=== PATIENT | female | born 1990 | race Caucasian/White ===

== ENCOUNTER → 2017-05-22 | Outpatient (CLI) | payer OTHER ==
[~2017-05-22] MED LIST: BACTRIM DS 8001 TA1 PO; MOTRIN800 MG PO; NORCO 325 MG-51 TAB PO; PEN-VK500 MG PO; PENICILLIN-VK500 MG PO
== END | disposition home or self-care (01) ==
LOC: US 09:30
DX: N85.2 Hypertrophy of uterus (principal)

== ENCOUNTER 2017-05-28 02:03 | Inpatient (IN) | payer OTHER ==
[2017-05-24 13:50] VITALS: BP 137/65
[2017-05-24 14:52] LABS: BASO # 0.1 10*3/uL (0.0-0.1); BASO % 0.5 % (0.0-1.0); EOS # 0.2 10*3/uL (0.0-0.4); EOS % 2.3 % (1.0-4.0); HEMATOCRIT 37.9 % (37.0-47.0); HEMOGLOBIN 11.8 g/dl (12.0-16.0); LYMPH # 2.3 10*3/uL (1.3-4.4); LYMPH % 24.8 % (27.0-41.0); MEAN CELL VOLUME 85.4 fl (81.0-99.0); MEAN CORPUSCULAR HGB 26.6 pg (27.0-31.0); MEAN CORPUSCULAR HGB CONC 31.1 g/dl (33.0-37.0); MEAN PLATELET VOLUME 11.2 fl (9.6-12.3); MONO # 0.7 10*3/uL (0.1-1.0); MONO % 7.4 % (3.0-9.0); NEUT # 6.1 10*3/uL (2.3-7.9); NEUT % 64.7 % (47.0-73.0); PLATELET COUNT AUTOMATED 299 10*3/uL (130-400); RED BLOOD COUNT 4.44 10*6/uL (4.10-5.10); RED CELL DISTRI WIDTH 13.7 % (0-14.5); WHITE BLOOD COUNT 9.4 10*3/uL (4.8-10.8)
[~2017-05-28] VITALS: Ht 170.2 cm; Wt 119.7 kg
[2017-05-28] VITALS (10 sets, daily range): BP systolic 90–161; BP diastolic 43–87
--- NOTE | ~2017-05-28 | WRIGHTHP ---
[place], [place] PATIENT HISTORY AND PHYSICAL EXAM NAME: RAJIV FONSECA UNIT #: [id number] ROOM: DOCTOR: RAVINDER GIBBS MD BIRTHDATE: [birth year] DOS: 05/28/2017 She is to have surgery on 05/28/2017 in terms of a diagnostic and operative laparoscopy with left salpingo-oophorectomy. HISTORY OF PRESENT ILLNESS: This patient is a very pleasant 27-year-old white female who is 1, para 1, primary section, with last menstrual period stated to be 04/17/2017, but she does have history of somewhat irregular cycles, who was seen in the office for an annual exam on 05/14/2017. At that time, she appeared in no significant distress, but she did state that she had had some acute left lower quadrant pain on 01/24/2016. She had sought emergency medical care and had CT and ultrasound, which revealed a small cyst on the left, but revealed nothing further. The symptoms subsequently resolved except for an occasional left lower quadrant "twinge." On my examination on that day, I did feel like the uterus was enlarged and globular, about 15 weeks size, but again her body habitus with a BMI of 42 may have precluded inaccurate examination and to that end, I had ordered an ultrasound, which in fact revealed a large left ovarian cyst, 13.9 x 11.7 x 8.4 cm. I brought the patient in today and we had a good discussion in regard to removal of this, particularly if she was anticipating additional conception in the future. The risks, benefits, indications, potential complications, and alternatives were reviewed, understanding stated and she did sign a consent. PAST MEDICAL HISTORY: Reveals her to have had 1 and 1 section. ALLERGIES: She states no known allergies. SOCIAL HISTORY: She does not smoke or drink. MEDICATIONS: She is on no medications at this time. REVIEW OF SYSTEMS: Stable. FAMILY HISTORY: Reveals her father with hypertension and her mother with diabetes. PHYSICAL EXAMINATION: GENERAL: Reveals a very pleasant 5 feet 7 inches, 260 pounds, white female, BMI of 42, in no significant distress. VITAL SIGNS: Blood pressure 138/86, O2 sat is excellent. There is no history of sleep apnea. HEENT AND NECK: Grossly intact. LUNGS: Grossly intact. CARDIAC: Grossly intact. BREASTS: Grossly intact. ABDOMEN: Grossly intact except for the suprapubic mass that I have described above. EXTREMITIES: Grossly intact. NEUROLOGIC: Grossly intact. [place], [place] PATIENT HISTORY AND PHYSICAL EXAM NAME: RAJIV FONSECA UNIT #: [id number] ROOM: DOCTOR: RAVINDER GIBBS MD BIRTHDATE: [birth year] GENITOURINARY: External genitalia, vagina, cervix normal. Most recent Pap negative. Uterus is actually normal in size and configuration based on the ultrasound. This mass actually sits above the uterus and seems to come from the left side of the pelvis. Right adnexa is negative. RECTAL: Deferred. ASSESSMENT: A large apparent left ovarian cyst. PLAN: The patient will undergo diagnostic and operative laparoscopy on 05/28/2017. RAVINDER GIBBS MD CM:HISPHYS:PATIENT HISTORY AND PHYSICAL EXAMINATION 21 32 RAVINDER GIBBS MD 05/24/17 1333 interface
--- NOTE | ~2017-05-28 | O ---
[place], [place] OPERATIVE NOTE NAME: RAJIV FONSECA UNIT #: [id number] ROOM: 518 DOCTOR: RAVINDER GIBBS MD BIRTHDATE: [birth year] DOS: 05/28/2017 PREOPERATIVE DIAGNOSES: Large left ovarian cyst and intermittent pelvic pain. POSTOPERATIVE DIAGNOSES: Stage IV endometriosis with a large chocolate endometrioma totally replacing the left ovary as well as the severe adhesions that accompanied stage IV endometriosis. OPERATION: Diagnostic laparoscopy, laparotomy, left salpingo-oophorectomy, lysis of adhesions and removal of several endometriosis, smaller cyst along the right tube and ovary and in the posterior cul-de-sac. SURGEON: Dr. Jacobo with intraoperative consultation with Dr. Mcintyre. ANESTHESIA: General. ESTIMATED BLOOD LOSS: Less than 200 mL total. REPLACEMENTS: IV fluids and Toradol. COMPLICATIONS: There were no complications per se with the case. CONDITION: The patient's condition to recovery was stable. OPERATIVE SUMMARY: The patient was taken to the operating room and placed in supine position, administered general anesthesia with endotracheal intubation, followed by placement of lithotomy position where she was prepped and draped in routine manner. Cervix was grasped with tenaculum and a cervical manipulator and a Shaffer was placed to straight drain. Infraumbilical and suprapubic incisions were made. In an effort to place a 5 mm trocar and sleeve we did enter a chocolate cyst emanating from the left ovary. I even tried a longer trocar and sleeve try to get around this cyst and was not able to do so. We then repositioned the patient, reprepped the abdomen and made a small Pfannenstiel incision, took this down in layers to the intra-abdominal cavity. Once we were into the cavity, the chocolate cyst itself was adherent to the anterior abdominal wall, among other things being adherent to small bowel, large bowel, posterior cul-de-sac and top of the uterus. We very carefully dissected this free from all of its attachments and finally we were able to identify the uterus itself. Once we were able to do this, the several pedicles were removed, the left tube and ovary and this large chocolate cystic mass. Once this was removed, we were able to lyse adhesions between the anterior uterus and anterior peritoneal surface. We were able to trace dilated right fallopian tube approximately 3/4 of its distance from the uterus, but it was buried into the posterior cul-de-sac with fimbria not identified. The right ovary was identified and appeared to be grossly normal. There were several endometriosis, cystic structures of peritoneum, along the right tube and into the posterior cul-de-sac, which was partially obliterated as well. We were able to remove these cysts ____. The anterior cul-de-sac once the adhesions were lysed appeared to be reasonably clean. We did have a small amount of oozing along the left pelvic side wall. I did have Dr. Mcintyre come in and look at the bowel closely [place], [place] OPERATIVE NOTE NAME: RAJIV FONSECA UNIT #: [id number] ROOM: [facility] DOCTOR: RAVINDER GIBBS MD BIRTHDATE: [birth year] and also look at the side wall bleeder, making sure we were not near the ureter and/or the external iliac vessels. He examined the area carefully. After we had placed several sutures prior to his arrival, we placed some Interceed over the area, held pressure on this further for a good while and then after removing pressure examined the area carefully and noted no bleeding. Once we were complete with this, we had already copiously irrigated and we could not irrigate again because of the Surgicel and other coagulating material, but we looked thoroughly at all operative sites and noted good hemostasis throughout, noted the bowel was intact and noted no other atypicalities. At that point, we noted a stable sponge and instrument count after removing all instruments packs, etc. We then closed the parietal peritoneum and the rectus muscles with a running 3-0 Vicryl suture. We closed the fascia with a running intermittent and locking 1 PDS suture. We reapproximated the subcutaneous tissue with 3 interrupted 3-0 Vicryl sutures and we closed the skin with a subcuticular 3-0 Monocryl suture as well as closing the infraumbilical incision from before with subcuticular 3-0 Monocryl suture. Dressings were placed. The patient was cleaned off, awakened, extubated and transferred to recovery in stable condition having had over 400 mL of clear urine output. Her vital signs were stable as well as a stable sponge and instrument count, good hemostasis as I had mentioned before. RAVINDER GIBBS MD CM:OPRPRANAVORD:OPERATIVE NOTE 1452 1802 RAVINDER GIBBS MD 05/28/17 1800 interface
--- NOTE | ~2017-05-28 | O ---
[place], [place] OPERATIVE NOTE NAME: RAJIV FONSECA UNIT #: [id number] ROOM: 518 DOCTOR: JOVAN ANGELO MD BIRTHDATE: [birth year] DOS: 05/28/2017 PREOPERATIVE DIAGNOSIS: Suspected intra-abdominal adhesions. POSTOPERATIVE DIAGNOSIS: Suspected intra-abdominal adhesions. PROCEDURE: Lysis of adhesions. SURGEON: Dr. Donnell Solis and Dr. Jovan Angelo. WORLD DESIGNER: SHWETA. ANESTHESIA: General with endotracheal intubation. INDICATIONS: This is a 27-year-old lady with a history of an endometrioma, for whom an intraoperative consult was placed to me by Dr. Solis for evaluation and treatment of bowel adhesions. I came in when a Pfannenstiel incision and a retractor was already placed by Dr. Solis and the endometrioma was removed. Bowel adhesions were taken down with the help of electrocautery by Dr. Solis and myself. Hemostasis was achieved and confirmed and also a small piece of Surgicel was placed in the left side of the pelvis where the endometrioma was removed. After hemostasis was confirmed, I left operating room and Dr. Solis proceeded with his part of the procedure, which would be dictated in a separate note. Jovan Angelo MD CM:OPRECORD:OPERATIVE NOTE 1429 1556 JOVAN ANGELO MD 05/28/17 1555 interface
--- NOTE | ~2017-05-28 | DS ---
[place], [place] DISCHARGE SUMMARY NAME: RAJIV FONSECA UNIT #: [id number] ROOM: 518 DOCTOR: RAVINDER GIBBS MD BIRTHDATE: [birth year] DOS: 05/29/2017 HOSPITAL COURSE: This delightful young lady was admitted for a laparoscopy and removal of a left ovarian cyst; however, stage 4 endometriosis was identified and we clinically felt it was indicated to proceed with a mini laparotomy. The left ovarian cyst was a large chocolate cyst/endometrioma and it was adherent to many places in terms of small and large bowel, anterior abdominal wall. uterus itself and the surrounding posterior cul-de-sac. We were able to perform the left salpingo-oophorectomy, lysis of multiple adhesions, trace the right tube at least a distance, noting it was buried in the posterior cul-de-sac, identifying the right ovary which appeared grossly normal and removing a number of endometriosis along the right tube and in the posterior cul-de-sac. The general surgeon, Dr. Mcintyre had been kind enough to come in an intraoperative consultation to examine the bowel carefully and noted it was all intact. We had one slight oozing area and then we worked together and resolved this to achieve good hemostasis. After the mini lap it was felt that it would be in patient's best interest to be admitted to the hospital at least for overnight. During her hospital stay, she has resumed bodily functions, she has ambulated reasonably well, she has tolerated regular diet and she actually states that she is feeling a lot better from some constant pressure and bloating that she used to have prior to removal of this big cyst. The patient and I had a very good discussion in regard to the operative findings and the operative procedures that were performed. We talked about her pain medication and ____ use postoperatively in terms of Percocet as well as anti-inflammatories. We talked about level of activity, bodily functions, avoiding constipation if at all possible, stairs, driving activities, wound care, etc. and she did state understanding. Her physical exam including her cardiac and pulmonary exam, her abdominal exam, calves and IV site were all stable. Her incision was intact and healing well. The patient had no significant vaginal bleeding. After having reviewed the operative findings as well as the discharge instructions with the patient and having understanding stated, the patient was discharged in satisfactory condition to follow up in about 4 weeks. She will also increase diet and activity as tolerated, contact us as I said with any questions or concerns in the postop period. She also understands that in all likelihood if she and her want to pursue another child that they will require the assistance of a air hammer stripper. Having getting all this information, the patient was discharged in satisfactory condition on 05/29/2017. [place], [place] DISCHARGE SUMMARY NAME: RAJIV FONSECA UNIT #: [id number] ROOM: 518 DOCTOR: RAVINDER GIBBS MD BIRTHDATE: [birth year] RAVINDER GIBBS MD CM:SOFIA [id number] 2 RAVINDER GIBBS MD 05/29/1701 interface
--- NOTE | 2017-05-28 16:30 | NUR ---
Time: 1629 A 27 year old FEMALE admitted to under services of DR. SAI DAS,RAVINDER. Pt. arrived via stretcher from OP/ADMIT. Chief complaint: S/P SALPINGO OOPHERECTOMY, DRESSING DRY AND INTACT, VS STABLE. GARCIA PATENT. IV FLUIDS INFUSING.. LOUIE BALLARD L
--- NOTE | 2017-05-28 16:48 | NUR ---
MEDICATED IV TORODAL FOR C/O PAIN. RATES PAIN 8/10.
--- NOTE | 2017-05-28 23:02 | NUR ---
PATIENT MEDICATED WITH PO PERCOCET PER PRN ORDER FOR C/O ABD PAIN 01/29. WILL MONITOR EFFECTIVENESS. CALL LIGHT LEFT IN REACH.
--- NOTE | 2017-05-29 05:42 | NUR ---
PATIENT GIVEN TORADOL AND ZOFRAN FOR ABD PAIN 01/29 AND ZOFRAN BECAUSE TORADOL MAKES PATIENT BELLY UPSET.
--- NOTE | 2017-05-29 05:47 | NUR ---
REMOVED PATIENT GARCIA CATH PER ORDERED [PATIENT TOLERATED WELL.
[2017-05-29 08:00] VITALS: BP 130/68
--- NOTE | 2017-05-29 08:00 | NUR ---
[employer] in to talk to patient. Patient states lives at HOME with HER . There are 3 steps in the home. Physician: NONE--DOES NOT WANT US TO HELP FIND ONE FOR HER Pharmacy: [facility] Home health services: NONE Patient's level of ADLs: INDEPENDENT Patient has working utilities: YES DME: NONE Follow-up physician's appointment after d/c: PREFERS TO MAKE HER OWN APPT Does patient want to access PORTAL?: Discharge plan HOME. ARIAN QUINTANILLA
--- NOTE | 2017-05-29 08:00 | NUR ---
AWAKE ALERT AND ORIENTED X3, NO S/S OF DISTRESS. C/O PAIN TO ABD OF 5/10. PERCOCET GIVEN. WILL CONT TO MONITOR. CALL LIGHT IN REACH. SEE ASSESS. DR GIBBS WAS IN AND SEEN PT.
--- NOTE | 2017-05-29 08:20 | NUR ---
PT DISCHARGED AT THIS TIME. HER TO TAKE HER HOME. VERBALIZED UNDERSTANDING OF DISCHARGE INSTRUCTIONS. IV REMOVED AND PRESSURE DRESSING APPLIED.
== END 2017-05-29 09:34 | disposition home or self-care (01) | DRG 743 ==
LOC: SDC 02:03 → 5E 13:37 → SDC 14:00 → 5E 05-29 09:34
PROVIDERS: ADMIT Obstetrics & Gynecology
DX: N80.3 Endometriosis of pelvic peritoneum (principal); N80.1 Endometriosis of ovary